=== PATIENT | female | born 1990 | race Two or more races ===

== ENCOUNTER → 2020-03-19 | Outpatient (CLI) | payer OTHER ==
[2020-03-19 16:00] LABS: BASOPHILS % (AUTO) 1 % (0-1); EOSINOPHILS % (AUTO) 7 % (1-7); LYMPHOCYTES % (AUTO) 43 % (22-44); MEAN CORPUSCULAR HEMOGLOBIN 28.8 pg (27.0-34.8); MEAN CORPUSCULAR HGB CONC 32.9 g/dL (32.4-35.8); MEAN PLATELET VOLUME 8.6 fL (7.4-10.4); MONOCYTES % (AUTO) 7 % (2-9); NEUTROPHILS % (AUTO) 43 % (42-75); PLATELET COUNT 266 x10^3/uL (130-400); RED BLOOD COUNT 4.83 x10^6/uL (3.82-5.3); RED CELL DISTRIBUTION WIDTH 13.6 % (9.6-15.2)
[2020-03-19 16:03] LABS: MD NO
[2020-03-19 16:07] LABS: MICROSCOPIC AUTO
[2020-03-19 16:13] LABS: CALCIUM 8.4 mg/dL (8.5-10.1); CHLORIDE 106 mmol/L (98-107)
[2020-03-19 16:22] LABS: ALANINE AMINOTRANSFERASE 22 U/L (12-78); ALBUMIN 3.8 g/dL (3.4-5.0); ALKALINE PHOSPHATASE 63 U/L (45-117); ANION GAP 4 mmol/L (5-15); BILIRUBIN,TOTAL 0.4 mg/dL (0.2-1.0); CREATININE 0.62 mg/dL (0.55-1.02); TOTAL PROTEIN 7.8 g/dL (6.4-8.2)
== END | disposition home or self-care (01) ==
LOC: STAR 14:13
PROVIDERS: ATTEND Obstetrics & Gynecology Gynecology
DX: Z01.818 Encounter for other preprocedural examination (principal)
CPT/HCPCS: 36415; 80053; 81001; 84702; 85025; 87086; 87147

== ENCOUNTER 2020-03-27 10:33 | Day surgery (SDC) | payer OTHER ==
[~2020-03-27] VITALS: Ht 157.5 cm; Wt 57.7 kg
[2020-03-27] MEDS ORDERED: CHLORHEXIDINE 15 ML UDC MM ONE ×2 (11:30→12:30)
[2020-03-27] MEDS ORDERED: LIDOCAINE-MPF 1%, 2ML INFIL ONE ×2 (11:30→12:30)
[2020-03-27] MEDS ORDERED: LACTATED RINGERS 1,000 ML IV SCH ×2 (11:30→12:30)
[2020-03-27 11:51] LABS: HCG UR SG 1.025 (1.003-1.030)
[2020-03-27] MEDS ORDERED: EPINEPHRINE 1 MG/ML, 1ML ONE (12:29)
[2020-03-27] MEDS ORDERED: SILVER NITRATE STICK TP ONE (12:29)
[2020-03-27] MEDS ORDERED: BUPIVACAINE/PF 0.25% ONE (12:29)
[2020-03-27] MEDS ORDERED: FENTANYL PF 250 MCG/5ML ONE (12:51)
[2020-03-27] MEDS ORDERED: MIDAZOLAM 1 MG/ML, 2ML ONE (12:51)
[2020-03-27] MEDS ORDERED: ACETAMINOPHEN 500 MG TABLET ONE (12:52)
[2020-03-27] MEDS ORDERED: SCOPOLAMINE 1MG PATCH TD ONE (12:53)
[2020-03-27] MEDS ORDERED: PROPOFOL 10 MG/ML, 20ML ONE (12:56)
[2020-03-27] MEDS ORDERED: SUCCINYLCHOLINE 20 MG/ML, 10ML ONE (12:59)
[2020-03-27] MEDS ORDERED: ROCURONIUM 10MG/ML,5ML ONE (12:59)
[2020-03-27] MEDS ORDERED: SCOPOLAMINE 1MG PATCH TD SCH (13:00)
[2020-03-27] MEDS ORDERED: SUGAMMADEX 200 MG/2 ML IVPush ONE (13:00)
[2020-03-27] MEDS ORDERED: ONDANSETRON 2MG/ML, 2ML ONE (13:00)
[2020-03-27] MEDS ORDERED: CEFAZOLIN 1,000 MG ONE (13:00)
[2020-03-27] MEDS ORDERED: ACETAMINOPHEN 500 MG TABLET PO ONE (13:00)
[2020-03-27] MEDS ORDERED: DEXAMETHASONE 4 MG/ML, 1ML ONE (13:00)
[2020-03-27] MEDS ORDERED: LABETALOL 5MG/ML, 20ML IV PRN (13:30)
[2020-03-27] MEDS ORDERED: MEPERIDINE/PF 25MG/0.5ML IVPush PRN (13:30)
[2020-03-27] MEDS ORDERED: DIAZEPAM 5 MG/ML, 2ML IVPush PRN (13:30)
[2020-03-27] MEDS ORDERED: ONDANSETRON 2MG/ML, 2ML IVPush PRN (13:30)
[2020-03-27] MEDS ORDERED: EPHEDRINE 50 MG/ML, 1ML IVPush PRN (13:30)
[2020-03-27] MEDS ORDERED: OXYcodone 5 MG/5 ML ORAL.SOL UDC PO PRN (13:30)
[2020-03-27] MEDS ORDERED: hydrALAzine 20 MG/ML, 1ML IV PRN (13:30)
[2020-03-27] MEDS ORDERED: PROMETHAZINE 12.5 MG SUPP PR PRN (13:30)
[2020-03-27] MEDS ORDERED: HYDROmorphone 1 MG/ML, 1ML INJ IVPush PRN (13:30)
[2020-03-27] MEDS ORDERED: MIDAZOLAM 1 MG/ML, 2ML IV PRN (13:30)
[2020-03-27] MEDS ORDERED: PROMETHAZINE 25 MG/ML, 1ML IVPush PRN (13:30)
[2020-03-27] MEDS ORDERED: DIPHENHYDRAMINE 50 MG/ML, 1ML IVPush PRN (13:30)
[2020-03-27] MEDS ORDERED: ALBUTEROL SULFATE 2.5 MG/3 ML NPPB PRN (13:30)
[2020-03-27] MEDS ORDERED: OXYcodone 5 MG/5 ML ORAL.SOL UDC ONE (13:42)
[2020-03-27] MEDS ORDERED: FENTANYL PF 100 MCG/2ML ONE (13:42)
[2020-03-27] MEDS ORDERED: MEPERIDINE/PF 25MG/ML,1ML ONE (13:43)
[2020-03-27] MEDS: FENTANYL PF 100 MCG/2ML IV PRN ×3 (13:55→14:10)
[2020-03-27] MEDS ORDERED: PROMETHAZINE 25 MG SUPP PR ONE (17:53)
== END 2020-03-27 18:05 | disposition home or self-care (01) ==
LOC: OUT 10:33
PROVIDERS: ATTEND Obstetrics & Gynecology Gynecology
DX: Z30.2 Encounter for sterilization (principal); Z20.828 Contact with and (suspected) exposure to other viral communicable diseases; Z91.011 Allergy to milk products; Z91.040 Latex allergy status; Z90.49 Acquired absence of other specified parts of digestive tract; Z98.890 Other specified postprocedural states
CPT/HCPCS: 36415; 58670; 81025; 86850; 86900; 87635; 88302; J0171; J0330; J0690; J1100; J2175; J2250; J2405; J2704; J3010; J7120